=== PATIENT | male | born 1980 | race Caucasian/White ===

== ENCOUNTER 2020-04-10 14:24 | Emergency (ER) | payer OTHER ==
[~2020-04-10] VITALS: Ht 182.9 cm; Wt 81.5 kg
[2020-04-10 15:41] LABS: BASO % 0.5 % (0.0-1.0); EOS # 0.1 10^3/uL (0.0-0.5); EOS % 1.7 % (0.0-3.0); HEMATOCRIT 44.5 % (42.0-52.0); HEMOGLOBIN 13.9 g/dl (13.5-17.5); LYMPH # 1.3 10^3/uL (1.5-5.0); LYMPH % 17.2 % (24.0-44.0); MEAN CORPUSCULAR HEMOGLOBIN 30.3 pg (27.0-33.0); MEAN CORPUSCULAR HGB CONC 31.2 g/dl (32.0-36.5); MEAN CORPUSCULAR VOLUME 96.9 fl (80.0-96.0); MONO # 0.9 10^3/uL (0.0-0.8); NEUTROPHILS # 5.4 10^3/uL (1.5-8.5); NEUTROPHILS % 69.3 % (36.0-66.0); PLATELET COUNT, AUTOMATED 253 10^3/uL (150-450); RED BLOOD COUNT 4.59 10^6/uL (4.30-6.10); WHITE BLOOD COUNT 7.7 10^3/uL (4.0-10.0)
[2020-04-10 16:05] LABS: C REACTIVE PROTEIN QUANTITATIV 1.51 MG/DL (0.00-0.30); CALCIUM LEVEL 8.8 MG/DL (8.5-10.1); CREATININE FOR GFR 1.57 MG/DL (0.70-1.30); GLOMERULAR FILTRATION RATE 52.9 (>60); POTASSIUM SERUM 4.9 MEQ/L (3.5-5.1)
[2020-04-10 16:09] LABS: ERYTHROCYTE SEDIMENTATION RATE 19 mm/hr (0-15)
--- NOTE | 2020-04-10 16:20 | REP ---
INDICATION: possible DVT COMPARISON: None. TECHNIQUE: Casas scale and color Doppler evaluation using linear high frequency transducer. FINDINGS: Ultrasound examination of the right lower extremity demonstrates occlusive thrombus in the popliteal vein extending to the trifurcation. IMPRESSION: Occlusive thrombus in the right popliteal vein. <Electronically signed by Camilo Chavez > 04/10/20 [id number]
[2020-04-10 16:42] VITALS: BP 153/89
[2020-04-10] MEDS ORDERED: ELIQ5TAB PO (16:42)
[2020-04-10] MEDS ORDERED: HYDR-3715 PO (16:42)
[2020-04-10] MEDS ORDERED: APIXABAN 5 MG TAB (ELIQUIS) PO ONE (16:45)
[2020-04-10] MEDS ORDERED: NORCO, ANEXSIA 5/325MG TABLET (HYDROcodone/ACETAMINOPHEN) PO ONE (16:45)
== END 2020-04-10 16:58 | disposition home or self-care (01) ==
LOC: M ED 14:24
DX: I82.431 Acute embolism and thrombosis of right popliteal vein (principal); Z79.01 Long term (current) use of anticoagulants; Z88.0 Allergy status to penicillin

== ENCOUNTER 2020-04-13 16:17 | Emergency (ER) | payer OTHER ==
[~2020-04-13] VITALS: Ht 182.9 cm; Wt 80.9 kg
[~2020-04-13 16:17] MED LIST: ELIQ5TAB PO; HYDR-3715 PO
--- OUTSIDE RECORDS SUMMARY | 2020-04-13 16:26 | CCD ---
Author Author [facility] Address Unknown Phone Unavailable Support Name Relationship Address Phone [facility] Next Of Kin [address] [place] [address] Unavailable DANIEL DALLAS Next Of Kin [address] [place] [address] Re-disclosure Warning The records that you are about to access may contain information from federally-assisted alcohol or drug abuse programs. If such information is present, then the following federally mandated warning applies: This information has been disclosed to you from records protected by federal confidentiality rules (42 CFR part 2). The federal rules prohibit you from making any further disclosure of this information unless further disclosure is expressly permitted by the written consent of the person to whom it pertains or as otherwise permitted by 42 CFR part 2. A general authorization for the release of medical or other information is NOT sufficient for this purpose. The Federal rules restrict any use of the information to criminally investigate or prosecute any alcohol or drug abuse patient.The records that you are about to access may contain highly sensitive health information, the redisclosure of which is protected by Article 27-F of the [facility] Public Health law. If you continue you may have access to information: Regarding HIV / AIDS; Provided by facilities licensed or operated by the [facility] Office of Mental Health; or Provided by the [facility] Office for People With Developmental Disabilities. If such information is present, then the following [facility] mandated warning applies: This information has been disclosed to you from confidential records which are protected by state law. State law prohibits you from making any further disclosure of this information without the specific written consent of the person to whom it pertains, or as otherwise permitted by law. Any unauthorized further disclosure in violation of state law may result in a fine or care home sentence or both. A general authorization for the release of medical or other information is NOT sufficient authorization for further disc losure. Insurance Providers Payer name Policy type / Coverage type Policy ID Covered alliance party ID Covered alliance party's relationship to briones Policy Briones Plan Information [facility] [employer] [id number]
[2020-04-13] MEDS ORDERED: IBUP-1114 PO (16:27)
[2020-04-13] MEDS ORDERED: MORPHINE 4 MG/ML 1ML VIAL/SYRINGE (J2270) IV ONE (16:45)
--- OUTSIDE RECORDS SUMMARY | 2020-04-13 17:12 | CCD ---
Author Author [facility] Address Unknown Phone Unavailable Support Name Relationship Address Phone [facility] Next Of Kin [address] [place] [address] Unavailable DANIEL DALLAS Next Of Kin [address] [place] [address] Re-disclosure Warning The records that you are [...] is protected by Article 27-F of the [facility] Public Health law. If you continue you may have access to information: Regarding HIV / AIDS; Provided by facilities licensed or operated by the [facility] Office of Mental Health; or Provided by the [facility] Office for People With Developmental Disabilities. If such information is present, then the following [facility] mandated warning applies: This information has been [...] law may result in a fine or usp sentence or both. A general authorization for the release of medical or other information is NOT sufficient authorization for further disc losure. Insurance Providers Payer name Policy type / Coverage type Policy ID Covered republican ID Covered republican's relationship to briones Policy Briones Plan Information [facility] [employer] [id number]
[2020-04-13 17:46] LABS: BASO % 0.6 % (0.0-1.0); EOS # 0.1 10^3/uL (0.0-0.5); EOS % 1.6 % (0.0-3.0); HEMATOCRIT 43.3 % (42.0-52.0); HEMOGLOBIN 13.3 g/dl (13.5-17.5); LYMPH # 1.1 10^3/uL (1.5-5.0); LYMPH % 21.3 % (24.0-44.0); MEAN CORPUSCULAR HEMOGLOBIN 29.7 pg (27.0-33.0); MEAN CORPUSCULAR HGB CONC 30.7 g/dl (32.0-36.5); MEAN CORPUSCULAR VOLUME 96.7 fl (80.0-96.0); MONO # 0.4 10^3/uL (0.0-0.8); MONO % 8.6 % (0.0-5.0); NEUTROPHILS # 3.4 10^3/uL (1.5-8.5); NEUTROPHILS % 67.3 % (36.0-66.0); PLATELET COUNT, AUTOMATED 287 10^3/uL (150-450); RED BLOOD COUNT 4.48 10^6/uL (4.30-6.10)
--- NOTE | 2020-04-13 17:59 | REPVR ---
PROCEDURE INFORMATION: Exam: US Duplex Right Lower Extremity Veins, Limited Exam date and time: 04/13/2020 5:26 PM Age: 39 years old Clinical indication: Pain; Leg, lower; Right; Additional info: Known popliteal dvt, worse pain and swelling TECHNIQUE: Imaging protocol: Real-time Duplex ultrasound of the Right Lower Extremity with 2-D mendez scale, color Doppler flow and spectral waveform analysis with image documentation. Limited exam was focused on the right lower extremity veins. COMPARISON: US Duplex, Ext,LOWER veins,unilat 04/10/2020 4:13 PM FINDINGS: Right deep veins: Comparison to the previous right lower extremity Doppler ultrasound from 04/10/2020 shows a slight interval improvement and decrease in size of the right popliteal and tibioperoneal trunk thrombi which are now nonocclusive whereas previously the thrombi appear to be occlusive. The right common femoral and femoral veins are patent without thrombus. Normal Doppler waveforms. Normal compressibility and/or augmentation response. Right superficial veins: Unremarkable. Saphenofemoral junction is patent without thrombus. Soft tissues: Unremarkable. IMPRESSION: 1. Comparison to the previous right lower extremity Doppler ultrasound from 04/10/2020 shows a slight interval improvement and decrease in size of the right popliteal and tibioperoneal trunk thrombi which are now nonocclusive whereas previously the thrombi appear to be occlusive. 2. The right common femoral and femoral veins are patent without thrombus. Electronically signed by: Bernardino Lee On 04/13/2020 17:58:39 PM
[2020-04-13 18:01] LABS: INR 1.12; PROTHROMBIN TIME 14.7 SECONDS (12.5-14.3)
[2020-04-13 18:02] LABS: PARTIAL THROMBOPLASTIN TIME 34.1 SECONDS (24.2-38.5)
[2020-04-13 18:18] LABS: BLOOD UREA NITROGEN 20 MG/DL (7-18); CALCIUM LEVEL 9.4 MG/DL (8.5-10.1); CARBON DIOXIDE LEVEL 34 MEQ/L (21-32); CHLORIDE LEVEL 105 MEQ/L (98-107); GLOMERULAR FILTRATION RATE > 60.0 (>60); GLUCOSE, FASTING 110 MG/DL (70-100); POTASSIUM SERUM 4.2 MEQ/L (3.5-5.1); SODIUM LEVEL 143 MEQ/L (136-145)
[2020-04-13] MEDS ORDERED: PERC5TAB12 PO (18:55)
[2020-04-13 18:58] LABS: NT-PRO BNP 43 PG/ML (<125)
[2020-04-13] MEDS ORDERED: OXYCODONE/APAP 5MG/325MG(BULK FOR ED) 1 TABLET PO ONE (19:00)
[2020-04-13 19:05] VITALS: BP 133/85
[2020-04-16 14:07] LABS: DRVV SCREEN 73.9 SEC
[2020-04-16 14:12] LABS: PTT LUPUS TYPE ANTICOAG SCREEN 1.8 (0-1.2)
[2020-04-16 14:20] LABS: LUPUS CONFIRM RATIO 1.5
[2020-04-16 14:25] LABS: NORMALIZED RATIO 1.2 (0.00-1.20)
[2020-04-18 09:09] LABS: ANTI THROMBIN 3 ANTIGEN IMMUNO 93 % (72-124); ANTI THROMBIN 3 FUNCT ACTIVITY 131 % (75-135); CARDIOLIPIN IGA ANTIBODY <9 APL U/mL (0-11); CARDIOLIPIN IGG ANTIBODY <9 GPL U/mL (0-14); CARDIOLIPIN IGM ANTIBODY 13 MPL U/mL (0-12); PHOSPHOLIPIDS LEVEL 194 mg/dL (150-250); PROTEIN C FUNCTIONAL ACTIVITY 136 % (73-180); PROTEIN S FUNCTIONAL ACTIVITY 103 % (63-140)
[2020-04-19 05:09] LABS: HEXAGONAL PHASE PHOSPHOLIPID 0 sec (0-11)
== END 2020-04-13 19:49 | disposition home or self-care (01) ==
LOC: M ED 16:17
DX: I82.431 Acute embolism and thrombosis of right popliteal vein (principal); R06.02 Shortness of breath; Z88.0 Allergy status to penicillin; Z79.01 Long term (current) use of anticoagulants; Z79.899 Other long term (current) drug therapy
CPT/HCPCS: 80048; 81240; 83880; 84311; 85025; 85300; 85301; 85303; 85305; 85598; 85610; 85613; 85730; 86147; 93971; 96374; 99284; J2270

== ENCOUNTER 2020-05-19 14:13 | Emergency (ER) | payer OTHER ==
[~2020-05-19] VITALS: Ht 182.9 cm; Wt 82.7 kg
[~2020-05-19 14:13] MED LIST changes: +IBUP-1114 PO; +PERC5TAB12 PO
[2020-05-19] MEDS ORDERED: ELIQ5TAB PO (14:36)
--- NOTE | 2020-05-19 16:26 | REP ---
INDICATION: PAIN SWELLING COMPARISON: None. TECHNIQUE: Real time compression and duplex Doppler interrogation of the right lower extremity deep venous system is performed. FINDINGS: The right common femoral, superficial femoral and popliteal veins are fully compressible with transducer pressure and demonstrate normal spontaneous and phasic flow, without evidence of deep venous thrombosis. There is occlusive thrombus in the tibioperoneal trunk. IMPRESSION: No evidence of deep venous thrombosis of the right lower extremity femoral popliteal venous system. There is occlusive thrombus in the tibioperoneal trunk. <Electronically signed by Ramirez Casas > 05/19/20 [id number]
--- OUTSIDE RECORDS SUMMARY | 2020-05-19 16:45 | CCD ---
Author Author [facility] Organization [facility] Address Unknown Phone Unavailable Care Team Providers Care Pipe Racker Name Role Phone Maia, Zoë GRECO-C Unavailable Unavailable Maia, Zoë Parker PA-C Unavailable Unavailable Maia, Zoë Parker PA-C Unavailable Unavailable Maia, Zoë Parker PA-C Unavailable Unavailable Maia, Zoë Parker PA-C Unavailable Unavailable Maia, Zoë Parker PA-C Unavailable Unavailable Maia, Zoë Parker PA-C Unavailable Unavailable Maia, Zoë Parker PA-C Unavailable Unavailable Maia, Zoë Parker PA-C Unavailable Unavailable Maia, Zoë Parker PA-C Unavailable Unavailable Maia, Zoë Parker PA-C Unavailable Unavailable UNKNOWN, [facility]IN[facility] ESPERANZA Unavailable Unavailable Re-disclosure Warning The records that you are [...] is protected by Article 27-F of the [facility] Public Health law. If you continue you may have access to information: Regarding HIV / AIDS; Provided by facilities licensed or operated by the [facility] Office of Mental Health; or Provided by the [facility] Office for People With Developmental Disabilities. If such information is present, then the following [facility] mandated warning applies: This information has been [...] law may result in a fine or residential sentence or both. A general authorization for the release of medical or other information is NOT sufficient authorization for further disc losure. Encounters Encounter Providers Location Date Indications Data Source(s ) Emergency Attender: Keith ISLASCConsultant: ESPERANZA Ojeda NKNOWN 05/16/2020 04:42:00 PM EST - 05/16/2020 07:08:00 PM [facility] Patient discharged. Insurance Providers Payer name Policy type / Coverage type Policy ID Covered alliance party ID Covered alliance party's relationship to snider Policy Snider Plan Information [facility] [id number] SP [id number] [facility] - O/P [id number] 18 [id number] [facility] [id number] SP [id number] Results ID Date Data Source [id number] 05/19/2020 01:37:00 [place] [address] PHONE: [phone] FAX: [phone] Name .................. : BURT Sexton Acct Number.................. : [id number] ROOM. ................. : TR-1A Number ................... : [id number] Stay type ............. : E/R Discharge Date......... ... : 05/16/20 Admit Date ....... .. : 05/16/20 Admit Phys .................... : MAIA DAMIEN Date of ....... : 1980 Family Phys ................... : UNKNOWN CO Phone .................. : [phone] Age ................................ : 40 Film# .................. .:[id number] Sex ................................. : M Unsigned transcriptions are preliminary reports and do not represent a medical or legal document [place] [id number] COMPLETE:05/16/20 21:03 BAW 4389 Reason(s): known DVT R post calf, on Eliquis, increased RLE pain RIGHT LOWER EXTREMITY DUPLEX DOPPLER ULTRASOUND: INDICATION: Known right calf DVT, on Eliquis with increased right lower extremity pain. FINDINGS: There is normal compressibility, augmentation and flow in the right common femoral and superficial femoral veins. The right popliteal vein demonstrates nearly occlusive thrombus that extends to the peritoneal trunk and posterior tibial vein and peroneal vein. IMPRESSION: Nearly occlusive thrombus from the popliteal vein to the calf veins. According to prior report, there was popliteal thrombus on outside imaging from [facility]. I am unsure if the extension of thrombus into the calf veins was present before or is new. There is no proximal extension past the popliteal vein. Electronically Reviewed and Signed By Fabiano Haynes M.D. , 05/19/20 13:37, THERESE Transcribe Initials: JOHNNY , Transcribe Date: 05/16/20 22:52, Dictation Date: Copy for: MAIA Camp via fax Copy for: EMERGENCY DEPT via modem Copy for: 710 MED REC DISCHARGED Page 1 of 1 Name Value Range Interpretation Code Description Data Wandy rce(s) Supporting Document(s) ID Date Data Source [id number] 05/19/2020 01:37:00 PM EST [facility] [address] [place] [address] PHONE: [phone] FAX: [phone] Name .................. : BURT Sexton Acct Number.................. : [id number] ROOM. ................. : TR-1A MR Number ................... : [id number] Stay type ............. : E/R Discharge Date......... ... : 05/16/20 Admit Date ....... .. : 05/16/20 Admit Phys .................... : MAIA DAMIEN Date of ....... : 1980 Family Phys ................... : UNKNOWN CO Phone .................. : [phone] Age ................................ : 40 Film# .................. .:[id number] Sex ................................. : M Unsigned transcriptions are preliminary reports and do not represent a medical or legal document TIBIA-FIBULA AP & LAT RT [id number] COMPLETE:05/16/20 19:02 [facility] [place]25 Reason(s): Lower Leg Pain RIGHT TIBIA AND FIBULA X-RAY: INDICATION: Lower leg pain. FINDINGS: There is normal alignment and position of the bones of the right lower leg. No bony abnormalities are identified. IMPRESSION: Unremarkable right lower leg. The ankle is not adequately visualized and if there is clinical concern for an injury at the ankle, an ankle series should be considered. Examination dictated by ANGUS Esparza. Examination was reviewed with Fabiano Haynes MD, radiologist at the time of this dictation. Electronically Reviewed and Signed By Fabiano Haynes M.D. , 05/19/20 13:37, [place] Transcribe Initials: JOHNNY , Transcribe Date: 05/16/20 22:47, Dictation Date: Copy for: MAIA Camp via fax Copy for: EMERGENCY DEPT via modem Copy for: 710 MED REC DISCHARGED Page 1 of 1 Name Value Range Interpretation Code Description Data Wandy rce(s) Supporting Document(s) ID Date Data Source [id number] 05/16/2020 04:42:00 PM EST [facility] 1 OrderSheet [facility] Emergency Department [address] [place] [address] Phone #: [phone]- [phone] 05/16/2020 16:28 Patient: BUNNY DALLAS Sex: M : 1980 Age: 40yWEIGHT:79.3 kg (S) HEIGHT:72 inches (S) BMI:23.7ALLERGIES: PenicillinsCHIEF COMPLAINT: swelling, painDIAGNOSIS: Deep venous thrombosisLAB ORDERSOrder Description Priority Entered Acknowledged InitialedCBC w Diff STAT 16:48 05/16/2020 16:52 Rachael GRECO; Gonzalez RNCMP STAT 16:48 05/16/2020 16:52 Rachael GRECO; Gonzalez RNPT/PTT STAT 16:48 05/16/2020 16:52 Rachael GRECO; Gonzalez RNCOVID-19 CAH (Not STAT 18:39 05/16/2020 Cancelled: Patient Refusal 19:13 DorisSymptomatic as Keith GRECO; Gonzalez RNDefined by [facility])(05/16/20) (Not FirstTest) (Hospitalized)(Not ) (NotResident inCongregate CareSetting) (NotEmployed inHealthcare Setting)DIAGNOSTIC STUDY ORDERSOrder Description Priority Entered Acknowledged InitialedUS Lower Ext STAT 16:48 05/16/2020 17:16 DorisVenous Right Keith GRECO; Gonzalez RN(Oxygen?(No)) Reason for Study: known DVT R post calf, on eliquis, increased RLE painTibia Fibula AP And STAT 16:49 05/16/2020 16:53 DorisLAT Right Keith GRECO; Gonzalez RN(Oxygen?(No)) Reason for Study: Lower Leg PainMEDICATION/IV/DRIP/FLUID ORDERSOrder Description Priority Entered Acknowledged Initialed 2 OrderSheet [facility] Emergency Department [address] [place] [address] Phone #: ext- [phone] 05/16/2020 16:28 Patient: BUNNY DALLAS Sex: M : 1980 Age: 40yVicodin (5-325mg) 18:21 05/16/2020 Cancelled: Patient Refusal 18:36 DorisPO 1 tab (HIGH Keith GRECO; Gonzalez RNALERTMEDICATION)Percocet PO 1 tab 18:36 05/16/2020 18:39 Rachael(HIGH ALERT Keith GRECO; Gonzalez RNMEDICATION)GENERAL ORDERSOrder Description Priority Entered Acknowledged Initialed[Electronically signed by Rachael Roth RN (19:14 05/16/2020)][Electronically signed by Keith Carvalho (19:17 05/16/2020)][Electronically locked by Rachael Roth RN (19:14 05/16/2020)] Name Value Range Interpretation Code Description Data [facility](s) Supporting Document(s) ID Date Data Source [id number] 05/16/2020 04:42:00 PM [place] [address] Medication Reconciliation Report [facility] Emergency Department [address] [place] [address] Phone #: ext- [phone] 05/16/2020 16:28 Patient: BUNNY DALLAS Sex: M : 1980 Age: 40yWeight: 79.3 kgHeight/Length: 72 in.BMI: 23.7ALLERGIES: PenicillinsThe patient's Home Medications are listed below:THE FOLLOWING MEDICATIONS NEED TO BE RECONCILED: Eliquis Oral (5 mg) 2 tablets, dailyThe source(s) of the original Home Medication information:Not obtained.The following Medications were given to the patient in the Emergency Department:Percocet [PO] PO 1 tab, administered: 18:39 05/16/2020The following Medications were prescribed to the patient:None. Name Value Range Interpretation Code Description Data [facility](s) Supporting Document(s) ID Date Data Source [id number] 05/16/2020 04:42:00 PM [place] [address] Medication Administration Record [facility] Emergency Department [address] [place] [address] Phone #: ext- [phone] 05/16/2020 16:28 Patient: BUNNY DALLAS Sex: M : 1980 Age: 40yWeight: 79.3 kgHeight/Length: 72 inBMI: 23.7ALLERGIES: Penicillins Date/Time Medication Administered Medication OrderedGiven PERCOCET [PO] Percocet PO 1 tab (HIGH ALERT18:39 05/16/2020 (OXYCODONE- ACETAMINOPHEN) MEDICATION)Rachael Roth RN Dose: 1 tab 5/325 mg Tablets PO Name Value Range Interpretation Code Description Data Wandy rce(s) Supporting Document(s) ID Date Data Source [id number] 05/16/2020 04:42:00 PM EST [facility] 1 General Instructions [facility] Emergency Department [address] [place] [address] Phone #: ext- [phone] 05/16/2020 16:28 Patient: BUNNY DALLAS Sex: M : 1980 Age: 40yChronic deep venous thrombosis of the right popliteal vein (? worsening DVT, and new DVT on eliquis, hxFactor V Leyden disease).INSTRUCTIONSAMA warnings: Time of assessment: 18:55 05/16/2020. Oriented to person, place, and time. Givesappropriate answers and rational expl anation of refusal of care. No indication for involuntary commitmentis present, signs of psychosis, auditory hallucinations, delusional thinking or suicidal ideations. No slurredspeech, tangential thinking, visual hallucinations or homicidal ideations. Speaks coherently. Abstractthinking intact.Clinical Impression: the patient has the capacity to make decisions regarding the medical care offered.Relevant issues reviewed and discussed with the patient. Aware of suspected diagnosis suggested byscreening exam (DVT RLE). The suspected diagnosis, based upon the initiated medical screening exam,is ? worsening and possibly new DVT RLE and has been discussed with the patient. Acknowledgesunderstanding of the reasons for recommendations regarding medical treatment, medical tests,procedures, admission to facility, transfer to other medical facility and further observation. Therecommended medical care being refused is transfer for evaluation of ? worsening and new DVT RLE andhas been discussed with the patient. The risks of refusing recommended care that were disclosed andacknowledged are , quadriplegia, paraplegia, permanent mental impairment, loss of limb, loss ofsexual function and loss of current lifestyle. Discharge instructions were provided to the patient.REFUSAL OF CARE STATEMENT (patient to review and sign in discharge instructions):I have read this paragraph. I understand that [facility] to give me certain medicalcare. The doctor explained that care to me, and I understand what that care is. The doctor also explainedto me what could happen to me if I leave here without having that care, and I understand what he said. Iknow that I am welcome to return to this [facility] at any time to receive the recommended care or any othercare that I may need at any time, regardless of my ability to pay for such care.(Electronically signed by ANGUS Peterson 05/16/2020 19:17) 2 General Instructions [facility] Emergency Department [address] [place] [address] Phone #: ext- [phone] 05/16/2020 16:28 Patient: BUNNY DALLAS Sex: M : 1980 Age: 40y Name Value Range Interpretation Code Description Data Wandy rce(s) Supporting Document(s) ID Date Data Source [id number] 05/16/2020 04:42:00 PM EST [facility] 1 Clinical Report - Nurses [facility] Emergency Department [address] [place] [address] Phone #: ext- [phone] 05/16/2020 16:28 Patient: BUNNY DALLAS Sex: M : 1980 Age: 40yTRIAGEArrived by private vehicle. Historian: patient.Acuity: LEVEL 3.Chief Complaint: RIGHT LOWER EXTREMITY PAIN and SWELLING.No injury occurred. Onset. (1 months ago). ( Pt states he was diagnosed with a DVT in his right leg on04/11/20 at [facility], was put on eliquis 10 mg daily, now he voices that 3 days ago the pain has increasedmuch and is in distress).Treatment CALL CENTER AGENT:(eliquis 10 mg 0530).SEPSIS SCREEN: SIRS SCREEN NEGATIVE. SEPSIS SCREEN NEGATIVE. No suspected or c onfirmedsigns of infection present.DAVID COMA SCORE: 15- eyes open- spontaneous (4); best verbal response- oriented (5); bestmotor response- obeys commands (6). --16:34 05/16/20 Aaron Mohan RN16:29 05/16/20. BP: 138/84. MAP: 102. HR: 77. RR: 16. O2 saturation: 100% on room air. Temp: 98.7 F(oral). Pain level now: 01/04. --16:34 05/16/20 Aaron Mohan RN.Weight: 79.3 kg stated. Height/Length: 72 inches Per Patient. BMI: 23.7. --16:29 05/16/20 Aaron Mohan RN.MedicationsEliquis Oral (Tablet 5 mg) 2 tablets, daily. --16:31 05/16/20 Aaron Mohan RN.AllergiesPenicillins.(hives, itching) --16:31 05/16/20 Rachael Roth RNThe following entry was struck and corrected by Rachael Roth RN, 16:46 (05/16/20) Reason forcorrection - other(correction). Penicillins. --16:31 05/16/20 Aaron Mohan RN .PROBLEMS:DVT - Deep Venous Thrombosis: Onset 04/10/2020.Factor V Leiden mutation. --16:46 05/16/20 Rachael Roth RNThe following entry was modified by Rachael Roth RN, 16:46 05/16/20 2 Clinical Report - Nurses [facility] Emergency Department [address] [place] [address] Phone #: ext- [phone] 05/16/2020 16:28 [id number] Sex: M : 1980 Age: 40y DVT - Deep Venous Thrombosis. --16:31 05/16/20 Aaron Mohan RN. ADDITIONAL SURGERIES: no known surgeries. History PAST MEDICAL HX: Tetanus status: up-to-date. Immunizations: up-to-date. SOCIAL HX: Never smoker. Occasional alcohol use. No drug use. He was offered HIV testing but declined and hepatitis C testing but declined. He has not traveled outside the [place] Infectious disease exposure: No infectious disease exposure. The patient was not exposed to Coronavirus. SELF HARM ASSESSMENT: Self harm assessment was performed. The patient answered "no" to the question(s) "Have you recently felt down, depressed, or hopeless?", "Do you have thoughts of harming or killing y ourself?", "Do you have a plan for harming or killing yourself?", "Have you recently had thoughts about harming or killing others?", "Do you have any dangerous items in your possession?", "Have you noticed less interest or pleasure in doing things?", "Are you here because you tried to hurt yourself?" and "Have you ever tried to hurt yourself before today?". ABUSE ASSESSMENT: No report of abuse. NUTRITIONAL RISK ASSESSMENT: The nutritional risk assessment revealed no deficiencies. FUNCTIONAL ASSESSMENT: Functional assessment: no impairments noted. LEARNING NEEDS ASSESSMENT: The learning needs assessment revealed no barriers. FALL RISK ASSESSMENT: Fall risk assessment completed. No risk factors identified. SKIN INTEGRITY ASSESSMENT: Skin integrity risk assessment completed. No skin integrity risk identified. --16:34 05/16/20 Aaron Mohan RN. Interventions To treatment room. --16:34 05/16/20 Aaron Mohan RN.PHYSICAL TBRMXMAHWV95:40 05/16/20. Ambulatory to room.GENERAL / NEURO / PSYCH: Oriented X 4. Alert. Appears in no acute distress.EXTREMITIES: Extremity pulses are within normal limits. Extremities exhibit normal ROM.Neuro-vascular status intact to the extremity. No lower extremity edema. Normal gait. Right leg:tenderness.SKIN: Skin intact. Skin is warm and dry. --16:44 05/16/20 Rachael Roth RN.NURSING PROGRESS NOTES16:44 05/16/20. Patient gowned. Two patient identifiers checked. Call light placed in reach. Side rails 3 Clinical Report - Nurses [facility] Emergency Department [address] [place] [address] Phone #: ext- [phone] 05/16/2020 16:28 Patient: BUNNY DALLAS Sex: M : 1980 Age: 40y up. Bed placed in lowest position. Brakes of bed on. Patient ready for evaluation- PA notified. --16:44 05/16/20 Rachael Roth RN 16:54 05/16/20. Patient transported to radiology by wheelchair with mask and program technician. --16:54 05/16/20 Rachael Roth RN 16:58 05/16/20. Patient returned from radiology by wheelchair with mask and program technician. --16:58 05/16/20 Rachael Roth RN 17:30 05/16/20. ( Bedside Ultrasound being performed). --18:06 05/16/20 Rachael Roth RN 18:02 05/16/20. ( Bedside Ultrasound completed). --18:06 05/16/20 Rachael Roth RN 18:10 05/16/20. GENERAL / NEURO / PSYCH: The patient reports pain that is located in the right lower leg is still present and worsening and currently severe. --19:08 05/16/20 Rachael Roth RN 18:39 05/16/2020 Percocet (oxyCODONE-Acetaminophen) PO 5/325 mg Tablets 1 tab given. Allergies verified and confirmed 5 rights. Information reviewed with patient including reason for taking this medication, signs of allergic reaction, precautions and sedative warning. Verbalizes understanding. --18:39 05/16/20 Rachael Roth RN 19:08 05/16/2020 Percocet PO Response: no adverse reaction pain is worsening. Symptoms have gotten worse. The patient feels worse. --19:12 05/16/20 Rachael Roth RN.DISPOSITION / DISCHARGE 19:08 05/16/20. The patient left the Emergency Department against medical advice and without completion of treatment; (refused transfer). The patient appears to be alert, oriented x4, coherent and in no acute distress. The patient notified staff prior to leaving the department and stated is leaving (refusing transfer to [facility]). Notified the ED physician of patient departure. Prior to leaving, he was advised to return if needed. He was informed of the risks of leaving and verbalized un derstanding of these risks. Patient signed form prior to leaving. He left the Emergency Department ambulatory and via private vehicle. --19:11 05/16/20 Rachael Roth RN 19:05 05/16/20. BP: 136/86. MAP: 102. HR: 64. RR: 14. O2 saturation: 100%. Temp: 98.7 F. Pain level now: 01/04. --19:11 05/16/20 Rachael Roth RN.Locked/Released at 05/16/2020 19:14 by Rachael Roth RN 4 Clinical Report - Nurses [facility] Emergency Department [address] [place] [address] Phone #: ext- [phone] 05/16/2020 16:28 Patient: BUNNY DALLAS Sex: M : 1980 Age: 40y Name Value Range Interpretation Code Description Data Wandy rce(s) Supporting Document(s) ID Date Data Source [id number] 05/16/2020 04:42:00 PM EST [facility] 1 Clinical Report - Physicians/Mid Levels [facility] Emergency Department [address] [place] [address] Phone #: ext- [phone] 05/16/2020 16:28 Patient: BUNNY DALLAS Sex: M : 1980 Age: 40y Time Seen: 16:32 05/16/2020. Arrived- By private vehicle. Historian- patient. Disposition decision: 18:55 05/16/2020.HISTORY OF PRESENT ILLNESS Chief Complaint: LOWER EXTREMITY PAIN and SWELLING. This started several days ago and 1 mo ago; Seen at [facility] 1 mo ago for acute onset R calf pain, states US there found DVT, placed on eliquis 10 mg PO daily, being worked up by Hem/onc and states he has Factor V Leyden disease, states he has increased pain to R posterior calf region over past several days. Compliant with eliquis. No chest pain or SOB. Severity is described as being moderate. It has become recently worse. The quality is noted to be aching. No radiation. Modifying factors- worsened by walking. Symptoms located in the area of the right leg. The patient has not had redness. No swelling, bladder dysfunction, bowel dysfunction, sensory loss or motor loss. He has had difficulty walking. Patient denies an injury. Similar symptoms previously. Patient has had similar symptoms once. Recent medical care: The patient was seen recently at another facility in the emergency department.REVIEW OF SYSTEMSNo cough, chest pain, difficulty breathing, fever or skin rash. No enlarged lymph nodes, neck pain, backpain, headache or blurred vision. No sore throat, abdominal pain, vomiting, diarrhea or difficulty withurination. No bloody stools.PAST HISTORYSee nurses notes. Problems: DVT - Deep Venous Thrombosis. Factor V Leiden mutation. Additional Surgeries: no known surgeries. Medications: Eliquis Oral (Tablet 5 mg) 2 tablets, daily. Allergies: Penicillins.(hives, itching).SOCIAL HISTORYNever smoker. Occasional alcohol use. No drug use. No recent travel. 2 Clinical Report - Physicians/Mid Levels [facility] Emergency Department [address] [place] [address] Phone #: ext- [phone] 05/16/2020 16:28 Patient: BUNNY DALLAS Sex: M : 1980 Age: 40yADDITIONAL NOTESThe nursing notes have been reviewed with agreement regarding the chief complaint, HPI, ROS, PMH andpatient medications and allergies.PHYSICAL EXAMVital Signs: 05/16/2020 16:29 BP: 138/84. MAP: 102. HR: 77. RR: 16. O2 saturation: 100% on room air.Temp: 98.7 F. Pain level now: 01/04. Have been reviewed as normal and appear to be correct. Bloodpressure normal. Mean arterial pressure- normal. Heart rate normal. Respiratory rate normal.Temperature normal. Oxygen saturation normal.Appearance: Alert. Oriented X3. No acute distress.Eyes: Pupils equal, round and reactive to light. Eyes normal inspection.ENT: Ears normal. Nose normal. Pharynx normal.Neck: Normal inspection. Neck supple.CVS: Normal heart rate and rhythm. Heart sounds normal.Respiratory: No respiratory distress. Painless inspiration. Breath sounds normal.Abdomen: Soft and nontender. No organomegaly.Back: Normal inspection. No tenderness. ROM normal.Skin: Skin intact. Skin warm and dry. Normal skin color. Normal skin turgor.Extremities: Right leg: moderate tendern ess located in the upper and mid leg. No erythema, swelling orecchymosis. Lower extremities exhibit normal ROM. No lower extremity edema. Extremities otherwisenegative.Gait: Gait not tested due to pain.Neuro: Oriented X 3. No motor deficit. No sensory deficit. Reflexes normal.LABS, X-RAYS, AND EKGLower Extremity Sonography: popliteal and calf vein DVT. Nearly occlusive. No direct comparison, butprevious report states prior popliteal vein DVT. Unsure if calf vein DVT is new. Study type: utilized duplexsonography. The exam was performed by a sound technician supervisor. The study was independently viewed by me andinterpreted by the radiologist and contemporaneously by me. Interpretation time: 18:22 05/16/2020.Laboratory Tests: Laboratory tests have been ordered, with results reviewed and considered in themedical decision making process. CBC w Diff: (NEVAEH: 05/16/2020 17:11) ( MsgRcvd 05/16/2020 17:28) Final results Test Result Flag Units (Reference) CBC W/AUTOMATED DIFF COMPLETE BLOOD COUNT WBC 3.8 L 10/uL (4.2 - 11.0) RBC 4.39 L 10/uL (4.50 - 6.30) HEMOGLOBIN 13.4 L g/dL (14.0 - 16.0) HEMATOCRIT 40.6 L % (41.0 - 51.0) MCV 92.5 fL (80.0 - 94.0) MCH 30.5 pg (27.0 - 34.0) MCHC 33.0 g/dL (31.0 - 36.0) RDW 13.9 % (11.5 - 14.8) PLATELETS 190 10/uL (150 - 450) MPV 8.8 fL (7.4 - 10.4) NEUT 55.8 % (37.0 - 80.0) LYMPH 34.6 % (25.0 - 40.0) 3 Clinical Report - Physicians/Mid Levels [facility] Emergency Department [address] [place] [address] Phone #: ext- [phone] 05/16/2020 16:28 Patient: BUNNY DALLAS Sex: M : 1980 Age: 40y MONO 6.8 % (3.0 - 8.0) EOS 1.8 % (0.0 - 7.0) BASO 1.0 % (0.0 - 2.0) %IG 0.0 % (0.0 - 0.0) %NRBC 0.0 % (0.0 - 0.0) #NEUT 2.12 10/uL (2.00 - 6.90) #LYMPH 1.32 10/uL (0.60 - 3.40) #MONO 0.26 10/uL (0.00 - 0.90) #EOS 0.07 10/uL (0.00 - 0.70) #BASO 0.04 10/uL (0.00 - 0.20) #IG 0.00 10/uL (0.00 - 0.10) #NRBC 0.00 10/uL (0.00 - 0.00) MANUAL DIFF NOT INDICATED RBC MORPH NOT INDICATEDCMP: (NEVAEH: 05/16/2020 17:11) ( MsgRcvd 05/16/2020 17:47) Final results Test Result Flag Units (Reference) COMPREHENSIVE METABOLIC PANEL COMPREHENSIVE METABOLIC PANEL SODIUM 136 mEq/L (134 - 153) POTASSIUM 3.5 L mEq/L (3.6 - 5.0) CHLORIDE 101 mEq/L (98 - 107) CO2 30 MEQ/L (22 - 30) GLUCOSE 191 H MG/DL (70 - 99) BUN 18 MG/DL (7 - 21) CREATININE 1.2 MG/DL (0.7 - 1.5) BUN/CREAT 15 (8 - 27) TOTAL PROTEIN 7.2 G/DL (6.3 - 8.2) ALBUMIN 4.3 G/DL (3.9 - 5.0) GLOBULIN 2.9 GM/DL (2.4 - 3.2) A/G RATIO 1.5 (0.8 - 2.0) CALCIUM 9.1 MG/DL (8.4 - 10.2) TOTAL BILI 0.8 MG/DL (0.2 - 1.3) ALKALINE PHOS 36 L U/L (38 - 126) SGOT/AST 26 U/L (5 - 40) SGPT/ALT 15 U/L (7 - 56) ANION GAP 5.0 L mmol/L (8.0 - 16.0) AGE 40 yrs NON-AA GFR >60 mL/min AFR AMER GFR >60 mL/min Male GFR Interprentation 20-49 yrs >60 mL/min Clcgtf80-64 yrs >56 mL/min Normal 60-69 yrs >49 mL/min Normal 70-79yrs>42 mL/min Normal 80 and above >35 mL/min Normal Female GFRInterpretation 20-39 yrs >60 mL/min Normal 40-49 yrs >58 mL/minNormal 50-59 yrs >51 mL/min Normal 60-69 yrs >45 mL/min Bpvrav25-08 yrs >39 mL/min Normal 80 and above >32 mL/min NormalPT/PTT: (NEVAEH: 05/16/2020 17:11) ( MsgRcvd 05/16/2020 17:36) Final results Test Result Flag Units (Reference) PROTIME 13.2 SECONDS (11.0 - 15.5) INR 0.95 (0.93 - 1.23) PTT 27.2 SECONDS (24.8 - 36.7) \\BLDo\\INR INTERPRETATION\\BLDx\\ Therapeutic range for Coumadin andrelated oral anticoagulants. -International Normalized Ratio ( INR): 2.0 - 3.0 for VenousThrombosis, Pulmonary Embolus, Tissue heart valves, Acute MN Atrial Fibrillation, Valvular heart diseaseand recurrent Systemic Embolism. -International Normalized Ratio (INR): 2.5 - 3.5 forMechanical Prosthetic valve. 4 Clinical Report - Physicians/Mid Levels [facility] Emergency Department [address] [place] [address] Phone #: ext- [phone] 05/16/2020 16:28 Patient: BUNNY DALLAS Sex: M : 1980 Age: 40y.PROGRESS AND PROCEDURESCourse of Care: 18:25 May 16 2020. ? new DVT RLE despite pt compliant with rishi singh factor V Leydendisease, awaiting call back from [facility] for transfer, hospitalist here thinks pt may need evaluation forGreenfield filter. 18:45 May 16 2020. No call back from [facility], attempting Zoila Leland. 18:57 May 16 2020. Pt at this time wishes to leave AMA and proceed to [facility] himself, sates he does not want to leave his car in hospital parking lot. Explained risks of leaving AMA to include possible , pt encouraged to return to ED at earliest convenience.CLINICAL IMPRESSION Chronic deep venous thrombosis of the right popliteal vein (? worsening DVT, and new DVT on eliquis, hx Factor V Leyden disease).INSTRUCTIONS AMA warnings: Time of assessment: 18:55 05/16/2020. Oriented to person, place, and time. Gives appropriate answers and rational explanation of refusal of care. No indication for involuntary commitment is present, signs of psychosis, auditory hallucinations, delusional thinking or suicidal ideations. No slurred speech, tangential thinking, visual hallucinations or homicidal ideations. Speaks coherently. Abstract thinking intact. Clinical Impression: the patient has the capacity to make decisions regarding the medical care offered. Relevant issues reviewed and discussed with the patient. Aware of suspected diagnosis matamoros ggested by screening exam (DVT RLE). The suspected diagnosis, based upon the initiated medical screening exam, is ? worsening and possibly new DVT RLE and has been discussed with the patient. Acknowledges understanding of the reasons for recommendations regarding medical treatment, medical tests, procedures, admission to facility, transfer to other medical facility and further observation. The recommended medical care being refused is transfer for evaluation of ? worsening and new DVT RLE and has been discussed with the patient. The risks of refusing recommended care that were disclosed and acknowle dged are , quadriplegia, paraplegia, permanent mental impairment, loss of limb, loss of sexual function and loss of current lifestyle. Discharge instructions were provided to the patient. REFUSAL OF CARE STATEMENT (patient to review and sign in discharge instructions): I have read this paragraph. I understand that a doctor at this hospital wants to give me certain medical care. The doctor explained that care to me, and I understand what that care is. The doctor also explained to me what could happen to me if I leave here without having that care, and I understand what he said. I know that I am welcome to return to this hospital at any time to receive the recommended care or any other care that I may need at any time, regardless of my ability to pay for such care. 5 Clinical Report - Physicians/Mid Levels [facility] Emergency Department [address] [place] [address] Phone #: ext- [phone] 05/16/2020 16:28 Patient: BUNNY DALLAS Sex: M : 1980 Age: 40y(Electronically signed by ANGUS Peterson 05/16/2020 19:17) Name Value Range Interpretation Code Description Data Wandy rce(s) Supporting Document(s) ID Date Data Source [id number] 05/16/2020 05:47:00 PM EST [facility] Name Value Range Interpretation Code Description Data Wandy rce(s) Supporting Document(s) COMPREHENSIVE METABOLIC PANEL [facility] COMPREHENSIVE METABOLIC PANEL Sodium [Moles/volume] in Serum or Plasma 136 mEq/L 134 - 153 [facility] Potassium [Moles/volume] in Serum or Plasma 3.5 mEq/L 3.6 - 5.0 L [facility] Chloride [Moles/volume] in Serum or Plasma 101 mEq/L 98 - 107 [facility] Carbon dioxide, total [Moles/volume] in Serum or Plasma 30 MEQ/L 22 - 30 [facility] Glucose [Mass/volume] in Serum or Plasma 191 MG/DL 70 - 99 H [facility] BUN 18 MG/DL 7 - [facility] Creatinine [Mass/volume] in Serum or Plasma 1.2 MG/DL 0.7 - 1.5 [facility] BUN/CREAT 15 8 - 27 [facility] al Protein [Mass/volume] in Serum or Plasma 7.2 G/DL 6.3 - 8.2 [facility] Albumin [Mass/volume] in Serum or Plasma 4.3 G/DL 3.9 - 5.0 [facility] Globulin [Mass/volume] in Serum by calculation 2.9 GM/DL 2.4 - 3.2 [facility] A/G RATIO 1.5 0.8 - 2.0 [facility] Calcium [Mass/volume] in Serum or Plasma 9.1 MG/DL 8.4 - 10.2 [facility] Bilirubin.total [Mass/volume] in Serum or Plasma 0.8 MG/DL 0.2 - 1.3 [facility] Alkaline phosphatase [Enzymatic activity/volume] in Serum or Plasma 36 U/L 38 - 126 L [facility] Aspartate aminotransferase [Enzymatic activity/volume] in Serum or Plasma 26 U/L 5 - 40 [facility] Alanine aminotransferase [Enzymatic activity/volume] in Seru m or Plasma 15 U/L 7 - 56 [facility] Anion gap 3 in Serum or Plasma 5.0 mmol/L 8.0 - 16.0 L [facility] AGE 40 yrs [facility] al NON-AA GFR >60 mL/min [facility] AFR AMER GFR >60 mL/min [facility] sp[facility] Male GFR In terprentation 20-49 yrs >60 mL/min Normal 50-59 yrs >56 mL/min Normal 60-69 yrs >49 mL/min Normal 70-79yrs >42 mL/min Normal 80 and above >35 mL/min Normal Female GFR Interpretation 20-39 yrs >60 mL/min Normal 40-49 yrs >58 mL/min Normal 50-59 yrs >51 mL/min Normal 60-69 yrs >45 mL/min Normal 70-79 yrs >39 mL/min Normal 80 and above >32 mL/min Normal ID Date Data Source [id number] 05/16/2020 05:36:00 PM EST [facility] Name Value Range Interpretation Code Description Data Wandy rce(s) Supporting Document(s) Prothrombin time (PT) 13.2 SECONDS 11.0 - 15.5 [facility] INR in Platelet poor plasma by Coagulation assay 0.95 0.93 - 1. 23 [facility] aPTT in Blood by Coagulation assay 27.2 SECONDS 24.8 - 36.7 [facility] \\BLDo\\INR INTERPRETATION\\BLDx\\ Therapeutic range for Coumadin and related oral anticoagulants. - International Normalized Ratio (INR): 2.0 - 3.0 for Venous Thrombosis, Pulmonary Embolus, Tissue heart valves, Acute MN Atrial Fibrillation, Valvular heart disease and recurrent Systemic Embolism. - International Normalized Ratio (INR): 2.5 - 3.5 for Mechanical Prosthetic valve. ID Date Data Source [id number] 05/16/2020 05:28:00 PM EST [facility] Name Value Range Interpretation Code Description Data Wandy rce(s) Supporting Document(s) CBC W/AUTOMATED DIFF [facility] COMPLETE BLOOD COUNT Leukocytes [#/volume] in Blood by Automated count 3.8 10^3/uL 4.2 - 1 1.0 L [facility] Erythrocytes [#/volume] in Blood by Automated count 4.39 10^6/uL 4. 50 - 6.30 L [facility] Hemoglobin [Mass/volume] in Blood 13.4 g/dL 14.0 - 16.0 L [facility] Hematocrit [Volume Fraction] of Blood by Automated count 40.6 % 4 1.0 - 51.0 L [facility] Erythrocyte mean corpuscular volume [Entitic volume] by Auto mated count 92.5 fL 80.0 - 94.0 [facility] Erythrocyte mean corpuscular hemoglobin [Entitic mass] by Automated count 30.5 pg 27.0 - 34.0 [facility] Erythrocyte mean corpuscular hemoglobin concentration [Mass/volume] by Automated count 33.0 g/dL 31.0 - 36.0 [facility] Erythrocyte distribution width [Ratio] by Automated count 13.9 % 11.5 - 14.8 [facility] Platelets [#/volume] in Blood by Automated count 190 10^3/uL 150 - 45 0 [facility] Platelet mean volume [Entitic volume] in Blood by Automated count 8.8 fL 7.4 - 10.4 [facility] Neutrophils/100 leukocytes in Blood by Automated count 55.8 % 37. 0 - 80.0 [facility] Lymphocytes/100 leukocytes in Blood by Manual count 34.6 % 25.0 - 40.0 [facility] Monocytes/100 leukocytes in Blood by Automated count 6.8 % 3.0 - 8.0 [facility] Eosinophils/100 leukocytes in Blood by Automated count 1.8 % 0.0 - 7.0 [facility] Basophils/100 leukocytes in Blood by Automated count 1.0 % 0.0 - 2.0 [facility] %IG 0.0 % 0.0 - 0.0 [facility] %NRBC 0.0 % 0.0 - 0.0 [facility] al Neutrophils [#/volume] in Blood by Automated count 2.12 10^3/uL 2.00 - 6.90 [facility] Lymphocytes [#/volume] in Blood by Automated count 1.32 10^3/uL 0.60 - 3.40 [facility] Monocytes [#/volume] in Blood by Automated count 0.26 10^3/uL 0.00 - 0.90 [facility] Eosinophils [#/volume] in Blood by Automated count 0.07 10^3/uL 0.00 - 0.70 [facility] Basophils [#/volume] in Blood by Automated count 0.04 10^3/uL 0.00 - 0.20 [facility] #IG 0.00 10^3/uL 0.00 - 0.10 [facility] #NRBC 0.00 10^3/uL 0.00 - 0.00 [facility] MANUAL DIFF NOT INDICATED [facility] RBC MORPH NOT INDICATED [facility] Procedure
[2020-05-19] MEDS ORDERED: NORCO, ANEXSIA 5/325MG TABLET (HYDROcodone/ACETAMINOPHEN) PO ONE (17:30)
[2020-05-19 17:37] LABS: BASO % 0.8 % (0.0-1.0); EOS # 0.1 10^3/uL (0.0-0.5); EOS % 1.7 % (0.0-3.0); HEMATOCRIT 42.6 % (42.0-52.0); HEMOGLOBIN 13.6 g/dl (13.5-17.5); LYMPH # 1.4 10^3/uL (1.5-5.0); LYMPH % 28.6 % (24.0-44.0); MEAN CORPUSCULAR HGB CONC 31.9 g/dl (32.0-36.5); MONO # 0.5 10^3/uL (0.0-0.8); MONO % 9.5 % (2.0-8.0); NEUTROPHILS # 2.9 10^3/uL (1.5-8.5); NEUTROPHILS % 59.2 % (36.0-66.0); PLATELET COUNT, AUTOMATED 235 10^3/uL (150-450); RED BLOOD COUNT 4.53 10^6/uL (4.30-6.10); WHITE BLOOD COUNT 4.8 10^3/uL (4.0-10.0)
[2020-05-19 17:47] LABS: INR 1.03; PROTHROMBIN TIME 13.7 SECONDS (12.5-14.3)
[2020-05-19 17:48] LABS: PARTIAL THROMBOPLASTIN TIME 27.1 SECONDS (24.2-38.5)
[2020-05-19 18:04] VITALS: BP 131/89
[2020-05-19] MEDS ORDERED: ENOXAPARIN 100MG/1ML SYRINGE (J1650 PER 10MG) SC ONE ×2 (19:00→20:00)
[2020-05-19] MEDS ORDERED: OXYCODONE/APAP 5MG/325MG(BULK FOR ED) 1 TABLET PO ONE (19:15)
[2020-05-19] MEDS ORDERED: LOVE1INJ SC ×2 (19:39→20:09)
[2020-05-19] MEDS ORDERED: HYDR-3713 PO ×2 (19:41→20:09)
[2020-05-20] MEDS ORDERED: ELIQ5TAB PO (15:14)
[2020-05-20] MEDS ORDERED: PERC5TAB12 PO (15:36)
== END 2020-05-19 20:27 | disposition home or self-care (01) ==
LOC: M ED 14:13 → MERGE 14:13 → M ED 20:27
DX: I74.3 Embolism and thrombosis of arteries of the lower extremities (principal); Z79.01 Long term (current) use of anticoagulants; Z88.0 Allergy status to penicillin
CPT/HCPCS: 80047; 85025; 85610; 85730; 93971; 96372; 99283; J1650

== ENCOUNTER 2020-10-10 14:53 | Emergency (ER) | payer OTHER ==
[~2020-10-10] VITALS: Ht 182.9 cm; Wt 80.5 kg
[~2020-10-10 14:53] MED LIST changes: +COVI30VI IM; +HYDR-3713 PO; +LOVE1INJ SC
[2020-10-10 15:44] LABS: BASO % 0.3 % (0.0-1.0); EOS % 0.5 % (0.0-3.0); HEMATOCRIT 42.5 % (42.0-52.0); HEMOGLOBIN 13.9 g/dl (13.5-17.5); LYMPH # 1.8 10^3/uL (1.5-5.0); LYMPH % 20.3 % (24.0-44.0); MEAN CORPUSCULAR HEMOGLOBIN 30.5 pg (27.0-33.0); MEAN CORPUSCULAR HGB CONC 32.7 g/dl (32.0-36.5); MEAN CORPUSCULAR VOLUME 93.2 fl (80.0-96.0); MONO # 0.6 10^3/uL (0.0-0.8); NEUTROPHILS # 6.4 10^3/uL (1.5-8.5); NEUTROPHILS % 71.7 % (36.0-66.0); PLATELET COUNT, AUTOMATED 223 10^3/uL (150-450); RED BLOOD COUNT 4.56 10^6/uL (4.30-6.10); WHITE BLOOD COUNT 8.9 10^3/uL (4.0-10.0)
[2020-10-10 16:10] LABS: ALBUMIN 4.2 GM/DL (3.2-5.2); ALT/SGPT 31 U/L (12-78); BILIRUBIN,DIRECT 0.2 MG/DL (0.0-0.2); BILIRUBIN,TOTAL 0.6 MG/DL (0.2-1.0); BLOOD UREA NITROGEN 22 MG/DL (7-18); CALCIUM LEVEL 9.3 MG/DL (8.5-10.1); CARBON DIOXIDE LEVEL 26 MEQ/L (21-32); CHLORIDE LEVEL 106 MEQ/L (98-107); CK-MB VALUE MASS 3.8 NG/ML (<3.6); CPK CREATINE PHOSPHOKINASE 470 U/L (39-308); GLOMERULAR FILTRATION RATE > 60.0 (>60); GLUCOSE, FASTING 90 MG/DL (70-100); MB/CK RELATIVE INDEX 0.81 (< OR =4); POTASSIUM SERUM 4.4 MEQ/L (3.5-5.1); SODIUM LEVEL 140 MEQ/L (136-145); THYROXINE (T4) 8.5 UG/DL (4.5-12.0); TOTAL PROTEIN 7.3 GM/DL (6.4-8.2); TROPONIN I 0.02 NG/ML (< 0.10)
[2020-10-10] MEDS ORDERED: ISOVUE-370 76% 100ML VIAL As Ordered ONE (16:57)
--- NOTE | 2020-10-10 18:09 | REPVR ---
PROCEDURE INFORMATION: Exam: CTA Chest With Contrast Exam date and time: 10/10/2020 5:12 PM Age: 40 years old Clinical indication: Shortness of breath and other: Cough; Additional info: Chest pain SOB TECHNIQUE: Imaging protocol: Computed tomographic angiography of the chest with contrast. 3D rendering (Not supervised by radiologist): MIP reconstructed images were created by the technologist. Radiation optimization: All CT scans at this facility use at least one of these dose optimization techniques: automated exposure control; mA and/or kV adjustment per patient size (includes targeted exams where dose is matched to clinical indication); or iterative reconstruction. Contrast material: ISOVUE 370; Contrast volume: 75 ml; Contrast route: INTRAVENOUS (IV); COMPARISON: No relevant prior studies available. FINDINGS: Pulmonary arteries: No pulmonary artery embolism identified. Aorta: No aortic aneurysm. No aortic dissection. Thyroid: The partially imaged bilateral thyroid lobes are unremarkable. Lungs: Mild right posterior basilar pulmonary subsegmental atelectasis. Pleural spaces: No pneumothorax. No pleural effusion. Heart: Normal. No pericardial effusion. Lymph nodes: No enlarged lymph nodes. Bones/joints: Unremarkable. No acute fracture. Soft tissues: Unremarkable. IMPRESSION: 1. No pulmonary artery embolism identified. 2. No thoracic aortic aneurysm or dissection identified. Electronically signed by: Chucho Gonzalez On 10/10/2020 18:08:39 PM
[2020-10-10 18:44] VITALS: BP 127/77
--- NOTE | 2020-10-11 10:52 | ECGEPIP ---
[facility] - ED Test Date: 2020-10-10 Pat Name: BUNNY DALLAS Department: Room: - Gender: Male [employer] C[employer] Developer: JACOB : 1980 Requested By: MATI Jerome Order Number: [id number] Reading MD: Cathi Jeter Measurements Intervals [place] Rate: 58 P: 41 [place]: 178 QRS: 61 QRSD: 94 T: 28 QT: 400 QTc: 392 Interpretive Statements Sinus bradycardia No prior Electronically Signed on 10-11-2020 10:52:22 EDT by Cathi Jeter
== END 2020-10-10 18:49 | disposition left against medical advice (07) ==
LOC: M ED 14:53
DX: R07.9 Chest pain, unspecified (principal); R00.1 Bradycardia, unspecified; Z53.9 Procedure and treatment not carried out, unspecified reason; Z86.711 Personal history of pulmonary embolism; Z86.718 Personal history of other venous thrombosis and embolism; Z88.0 Allergy status to penicillin; Z79.01 Long term (current) use of anticoagulants
CPT/HCPCS: 36415; 71275; 80048; 80076; 82550; 82553; 84436; 84443; 84484; 85025; 93005; 93041; 94760; 99285; Q9967

== ENCOUNTER 2021-04-25 21:08 | Emergency (ER) | payer OTHER ==
[~2021-04-25] VITALS: Ht 182.9 cm; Wt 76.7 kg
[2021-04-25 23:18] VITALS: BP 133/89
== END 2021-04-25 23:54 | disposition home or self-care (01) ==
LOC: M ED 21:08
DX: N50.812 Left testicular pain (principal); R59.0 Localized enlarged lymph nodes; N50.3 Cyst of epididymis; R53.83 Other fatigue; Z88.0 Allergy status to penicillin; Z86.711 Personal history of pulmonary embolism

== ENCOUNTER → 2021-05-22 | Outpatient (CLI) | payer OTHER ==
[~2021-05-22] MED LIST changes: +ELIQ2.5T PO; +ISOVUE-370 76% 100ML VIAL As Ordered ONE
== END ==
LOC: M RAD 13:53
PROVIDERS: ATTEND Internal Medicine Hematology & Oncology
DX: M79.9 Soft tissue disorder, unspecified (principal)
CPT/HCPCS: 71260; 76604; Q9967

== ENCOUNTER → 2021-06-25 | Outpatient (REF) ==
[~2021-06-25] MED LIST changes: -ISOVUE-370 76% 100ML VIAL As Ordered ONE
== END ==
LOC: M PLAIMG 11:36
PROVIDERS: ATTEND Internal Medicine
DX: R06.02 Shortness of breath (principal); M79.641 Pain in right hand; M79.642 Pain in left hand

== ENCOUNTER → 2021-07-27 | Outpatient (CLI) | payer OTHER ==
[~2021-07-27] MED LIST changes: +DOXY100T PO; +NAPR-885 PO
[2021-07-27 13:48] LABS: C REACTIVE PROTEIN QUANTITATIV < 0.30 MG/DL (0.00-0.30); COMPLEMENT C3 70 MG/DL (90-180); COMPLEMENT C4 22 MG/DL (10-40)
== END ==
LOC: M PLALAB 11:16
PROVIDERS: ATTEND Internal Medicine Infectious Disease
DX: M19.90 Unspecified osteoarthritis, unspecified site (principal); L60.8 Other nail disorders

== ENCOUNTER → 2021-08-18 | Outpatient (CLI) | payer OTHER ==
[~2021-08-18] MED LIST changes: +ISOVUE-300 61% 50ML VIAL As Ordered ONE; +LIDOCAINE 1% MDV 20ML VIAL As Ordered ONE; +TRIAMCINOLONE ACETONIDE SUSP 40 MG/ML VIAL (J3301) As Ordered ONE
== END ==
LOC: M RADPRO 15:34
PROVIDERS: ATTEND Physician Assistant Surgical
DX: S73.121A Ischiocapsular ligament sprain of right hip, initial encounter (principal); X58.XXXA Exposure to other specified factors, initial encounter; Y92.9 Unspecified place or not applicable
CPT/HCPCS: 20610; 77002; J3301; Q9967

== ENCOUNTER → 2021-08-20 | Outpatient (CLI) | payer OTHER | LOC: M RADPRO 13:05 | PROVIDERS: ATTEND Physician Assistant Surgical | DX: S73.122A Ischiocapsular ligament sprain of left hip, initial encounter (principal); X58.XXXA Exposure to other specified factors, initial encounter; Y92.9 Unspecified place or not applicable | CPT/HCPCS: 20610; 77002; J3301; Q9967 ==

== ENCOUNTER → 2021-09-09 | Outpatient (REF) | payer OTHER ==
[~2021-09-09] MED LIST changes: -ISOVUE-300 61% 50ML VIAL As Ordered ONE; -LIDOCAINE 1% MDV 20ML VIAL As Ordered ONE; -TRIAMCINOLONE ACETONIDE SUSP 40 MG/ML VIAL (J3301) As Ordered ONE
[2021-09-09 13:43] LABS: APPEARANCE, URINE CLEAR (CLEAR); BACTERIA, URINE AUTO NEGATIVE (NEGATIVE); BILIRUBIN, URINE AUTO NEGATIVE (NEGATIVE); BLOOD, URINE BLOOD NEGATIVE (NEGATIVE); COLOR, URINE YELLOW (YELLOW); GLUCOSE, URINE (UA) AUTO NEGATIVE (NEGATIVE); KETONE, URINE AUTO TRACE mg/dL (NEGATIVE); LEUKOCYTE ESTERASE, URINE AUTO NEGATIVE (NEGATIVE); MUCUS, URINE SMALL (NEGATIVE); NITRITE, URINE AUTO NEGATIVE (NEGATIVE); PROTEIN, URINE AUTO NEGATIVE (NEGATIVE); RBC, URINE AUTO 0 /HPF (0-3); SPECIFIC GRAVITY URINE AUTO 1.017 (1.002-1.035); SQUAMOUS EPITHELIAL CELL UR AU 0 /HPF (0-6); UROBILINOGEN, URINE AUTO 0.2 mg/dL (0.0-2.0); WBC, URINE AUTO 1 /HPF (0-3)
[2021-09-09 13:45] LABS: BASO % 0.8 % (0.0-1.0); EOS # 0.1 10^3/uL (0.0-0.5); EOS % 2.8 % (0.0-3.0); HEMATOCRIT 42.9 % (42.0-52.0); LYMPH # 1.3 10^3/uL (1.5-5.0); LYMPH % 32.7 % (24.0-44.0); MEAN CORPUSCULAR HEMOGLOBIN 30.3 pg (27.0-33.0); MEAN CORPUSCULAR HGB CONC 32.6 g/dl (32.0-36.5); MEAN CORPUSCULAR VOLUME 92.9 fl (80.0-96.0); MONO # 0.4 10^3/uL (0.0-0.8); MONO % 11.1 % (2.0-8.0); NEUTROPHILS # 2.1 10^3/uL (1.5-8.5); NEUTROPHILS % 52.3 % (36.0-66.0); PLATELET COUNT, AUTOMATED 260 10^3/uL (150-450); RED BLOOD COUNT 4.62 10^6/uL (4.30-6.10)
[2021-09-09 14:05] LABS: TOTAL PROTEIN,RANDOM URINE 14.7 MG/DL (0.0-12.0)
[2021-09-09 14:23] LABS: ALBUMIN 4.3 GM/DL (3.2-5.2); ALT/SGPT 43 U/L (12-78); BILIRUBIN,TOTAL 0.7 MG/DL (0.2-1.0); BLOOD UREA NITROGEN 16 MG/DL (7-18); CALCIUM LEVEL 9.7 MG/DL (8.5-10.1); CARBON DIOXIDE LEVEL 30 MEQ/L (21-32); CHLORIDE LEVEL 108 MEQ/L (98-107); COMPLEMENT C3 86 MG/DL (90-180); COMPLEMENT C4 26 MG/DL (10-40); CREATININE FOR GFR 1.23 MG/DL (0.70-1.30); GLOMERULAR FILTRATION RATE > 60.0 (>60); GLUCOSE, FASTING 94 MG/DL (70-100); LDH LACTATE DEHYDROGENASE 209 U/L (87-241); POTASSIUM SERUM 4.2 MEQ/L (3.5-5.1); SODIUM LEVEL 142 MEQ/L (136-145); TOTAL PROTEIN 7.1 GM/DL (6.4-8.2)
[2021-09-09 14:40] LABS: ERYTHROCYTE SEDIMENTATION RATE 3 mm/hr (0-15)
== END ==
LOC: M SFHCRHEU 09:37
PROVIDERS: ATTEND Internal Medicine Rheumatology
DX: M35.3 Polymyalgia rheumatica (principal); Z15.89 Genetic susceptibility to other disease; I73.00 Raynaud's syndrome without gangrene; R76.0 Raised antibody titer

== ENCOUNTER → 2021-11-11 | Outpatient (CLI) | payer OTHER | LOC: M RAD 17:07 | PROVIDERS: ATTEND Internal Medicine Rheumatology | DX: M35.3 Polymyalgia rheumatica (principal); Z15.89 Genetic susceptibility to other disease; I73.00 Raynaud's syndrome without gangrene; R76.0 Raised antibody titer ==

== ENCOUNTER → 2021-12-16 | Outpatient (CLI) | payer OTHER | LOC: M PLAIMG 06:43 | PROVIDERS: ATTEND Internal Medicine Rheumatology | DX: Z15.89 Genetic susceptibility to other disease (principal) ==

== ENCOUNTER → 2022-01-11 | Outpatient (CLI) | payer OTHER ==
[~2022-01-11] MED LIST changes: +ISOVUE-300 61% 50ML VIAL ONE; +LIDOCAINE 1% MDV 20ML VIAL ONE; +TRIAMCINOLONE ACETONIDE SUSP 40 MG/ML VIAL (J3301) ONE
== END ==
LOC: M RADPRO 12:49 → M PLARAD 12:49
PROVIDERS: ATTEND Physician Assistant Surgical
DX: S73.121A Ischiocapsular ligament sprain of right hip, initial encounter (principal); S73.122A Ischiocapsular ligament sprain of left hip, initial encounter; X58.XXXA Exposure to other specified factors, initial encounter; Y92.9 Unspecified place or not applicable
CPT/HCPCS: 20610; 76000; J3301; Q9967